=== PATIENT | male | born 1945 | race Caucasian/White ===

== ENCOUNTER 2023-01-23 10:36 | Emergency (ER) | payer BC, OTHER ==
[~2023-01-23] VITALS: Ht 177.8 cm; Wt 72.6 kg
[2023-01-23 10:36] VITALS: BP_SYST 127
--- NOTE | 2023-01-23 10:38 | NUR ---
BROUGHT BACK TO BED #5 AND TRIAGED.REPORT GIVEN TO [facility]
[2023-01-23] MEDS ORDERED: HYDROcodone/ACETAMIN 5-325 MG TAB (NORCO/ VICODIN) PO ONE (11:00)
--- NOTE | 2023-01-23 11:00 | NUR ---
PT RECEIVED, CARE ASSUMED. PT PRESENTS SELF TO ER FOR EVALUATION OF RIGHT CALF REDNESS, TIGHTNESS. PT THINKS HE MIGH HAVE A DVT. CONNECTED PT TO TELE MONITOR. RUVALCABA AT BED SIDE
[2023-01-23 11:29] LABS: BASOPHILS # (AUTO) 0.1 K/uL (0.0-0.2); BASOPHILS % (AUTO) 0.5 % (0.0-2.0); EOSINOPHILS # (AUTO) 0.4 K/uL (0.0-0.4); EOSINOPHILS % (AUTO) 3.2 % (0.0-4.0); HEMATOCRIT 39.6 % (36-54); HEMOGLOBIN 13.4 g/dL (14.0-18.0); LYMPHOCYTES # (AUTO) 1.2 K/uL (1.0-5.5); LYMPHOCYTES % (AUTO) 9.8 % (20.5-51.5); MEAN CORPUSCULAR HEMOGLOBIN 31 pg (27-31); MEAN CORPUSCULAR HGB CONC 34 % (32-36); MEAN CORPUSCULAR VOLUME 91 fL (79.0-98.0); MONOCYTES # (AUTO) 1.1 K/uL (0.0-1.0); MONOCYTES % (AUTO) 8.7 % (1.7-9.3); NEUTROPHILS # (AUTO) 9.9 K/uL (1.8-7.7); NEUTROPHILS % (AUTO) 77.8 % (40.0-70.0); PLATELET COUNT (AUTO) 552 K/uL (130-430); RED BLOOD CELL COUNT(AUTO) 4.35 MIL/uL (4.2-6.2); RED CELL DISTRIBUTION WIDTH 13.1 % (9.0-15.0); WHITE BLOOD COUNT (AUTO) 12.7 K/uL (4.8-10.8)
--- NOTE | 2023-01-23 11:40 | NUR ---
ULTRASOUND BEING DONE AT BEDSIDE
[2023-01-23 11:42] LABS: ANION GAP 7 (5-15); CALCIUM 9.4 mg/dL (8.4-11.0); CHLORIDE 97 mmol/L (98-107); CREATININE 1.88 mg/dL (0.55-1.30); GLUCOSE 124 mg/dL (70-99); UREA NITROGEN, BLOOD 22 mg/dL (8-21)
[2023-01-23 11:47] LABS: ALANINE AMINOTRANSFERASE 19 U/L (12-78); ALBUMIN 3.1 g/dL (3.4-4.8); ASPARTATE AMINOTRANSFERASE 14 U/L (10-37); TOTAL BILIRUBIN 0.7 mg/dL (0.0-1.0)
[2023-01-23] MEDS ORDERED: APIX5TAB4 PO (13:16)
--- NOTE | 2023-01-23 14:04 | NUR ---
Patient given written and verbal discharge instructions and verbalizes understanding. ER MD discussed with patient the results and treatment provided. Patient in stable condition. ID arm band removed. Rx of ELIQUIS given. Patient educated on pain management and to follow up with PMD. Pain Scale 0/10. Opportunity for questions provided and answered. Medication side effect fact sheet provided.
== END 2023-01-23 14:04 | disposition home or self-care (01) ==
LOC: SED 10:36
DX: I82.401 Acute embolism and thrombosis of unspecified deep veins of right lower extremity (principal); R22.41 Localized swelling, mass and lump, right lower limb; I10 Essential (primary) hypertension; Z79.899 Other long term (current) drug therapy
CPT/HCPCS: 36415; 80053; 85025; 93971; 99284